=== PATIENT | male | born 2000 | race American Indian/Alaskan Native ===

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

== ENCOUNTER 2021-08-25 13:41 | Emergency (ER) | payer SELFPAY ==
[2021-08-25] MEDS ORDERED: LIDOCAINE 1%/EPINEPHRINE 1:100,000 VIAL (20 ML) INFILTRATI NR (15:15)
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
[2021-08-25 17:34] VITALS: BP 128/78
== END 2021-08-25 17:33 | disposition home or self-care (01) ==
LOC: ED 13:41
DX: S01.511A Laceration without foreign body of lip, initial encounter (principal); V89.2XXA Person injured in unspecified motor-vehicle accident, traffic, initial encounter; Y93.89 Activity, other specified; Y92.488 Other paved roadways as the place of occurrence of the external cause; Y99.8 Other external cause status
CPT/HCPCS: 99282